=== PATIENT | female | born 1960 | race Two or more races ===

== ENCOUNTER → 2025-02-06 | Outpatient (CLI) | payer MEDICARE, MEDICAID, SELFPAY ==
--- NOTE | 2025-02-06 10:30 | XR_ITS ---
Examination: Abdomen sonogram, complete Date and time of exam: February 06, 2025 1041 hours INDICATIONS: Probable focal fatty sparing in the mid liver 4.8 x 5.2 cm on abdomen sonogram March 21, 2024. Technique: Multiple real-time grayscale transabdominal sonographic images of the abdomen have been obtained. Findings: Absent gallbladder Normal common bile duct 0.3 cm Pancreas obscured by bowel gas Aorta not enlarged Liver 13.2 cm probable focal fatty sparing in the liver 4.8 x 4.3 cm Normal hepatopedal portal venous flow Patent IVC Right kidney 11.6 cm renal cortex 1.6 cm Left kidney 11.7 cm cortex 1.7 cm Spleen 8 cm IMPRESSION: Suggest continued 3 month follow-up to document stability of probable focal fatty sparing in the liver
--- NOTE | 2025-02-06 11:00 | XR_ITS ---
Examination: Thyroid sonography complete TECHNIQUE: Grayscale sonographic images thyroid lobes Exam date and time: January 2025 1036 hours INDICATIONS: Mild right thyromegaly on thyroid sonogram February 14, 2024, diagnosis hypothyroidism several years ago FINDINGS: Right thyroid 4.9 cm no solid nodules Left thyroid 4.1 cm no solid nodules IMPRESSION: Negative study Given the patient's diagnosis, consider correlation with oral I-123 thyroid uptake and scan
== END | disposition home or self-care (01) ==
PROVIDERS: PCP Registered Nurse Community Health; Referring Provider Registered Nurse Community Health; Visit Provider Registered Nurse Community Health
DX: E03.9 Hypothyroidism, unspecified (principal); K76.0 Fatty (change of) liver, not elsewhere classified
CPT/HCPCS: 76536; 76700

== ENCOUNTER → 2025-03-21 | Outpatient (CLI) | payer MEDICARE, MEDICAID, SELFPAY ==
--- NOTE | 2025-03-21 10:40 | XR_ITS ---
Examination: Ultrasound soft tissue neck TECHNIQUE: Grayscale sonographic images soft tissue neck Date and time: March 21, 2025 10:52 AM INDICATIONS: Difficulty swallowing 2 years with palpable lump in the submental region noticed beginning 2 years ago. FINDINGS: 9 x 6 x 8 mm left submental lymph node IMPRESSION: 9 x 6 x 8 mm left submental lymph node
== END | disposition home or self-care (01) ==
LOC: CDIM 10:22
PROVIDERS: PCP Registered Nurse Community Health; Referring Provider Registered Nurse Community Health; Visit Provider Registered Nurse Community Health
DX: R22.0 Localized swelling, mass and lump, head (principal)
CPT/HCPCS: 76536

== ENCOUNTER → 2025-07-07 | Outpatient (CLI) | payer MEDICARE, MEDICAID, SELFPAY ==
--- NOTE | 2025-07-07 15:41 | XR_ITS ---
Examination: Knee, right , 3 views Technique: Knee AP, lateral, oblique 3 views Date and time of exam: July 07 thousand 25 1542 hours INDICATIONS: Hyperextension right knee pain beginning 2 weeks ago FINDINGS: Moderate tricompartment osteoarthritis. No fracture or dislocation Small knee effusion IMPRESSION: Moderate tricompartment osteoarthritis
== END | disposition home or self-care (01) ==
PROVIDERS: PCP Registered Nurse Community Health; Referring Provider Registered Nurse Community Health; Visit Provider Registered Nurse Community Health
DX: M17.11 Unilateral primary osteoarthritis, right knee (principal)
CPT/HCPCS: 73562